=== PATIENT | female | born 1950 | race Caucasian/White ===

== ENCOUNTER → 2018-10-16 | Outpatient (CLI) | payer MEDICARE, OTHER ==
--- NOTE | 2018-10-16 15:02 | PCVCIMAG ---
APPROVED REPORT Study performed: 10/16/2018 14:00:44 EXAM: Comprehensive 2D, Doppler, and color-flow Echocardiogram Patient Location: Echo lab Room #: 3Status: routine BSA: 1.63 HR: 64 bpmBP: 130/70 mmHg Rhythm: NSR Other Information Study Quality: Good Risk Factors: Cardiac Risk Factors: HTN, Hyperlipidemia Indications Aortic Valve Disease LVH 2D Dimensions IVSd: 12.01 (7-11mm)LVOT Diam: 21.11 (18-24mm) LVDd: 32.97 mm PWd: 14.19 (7-11mm)Ascending Ao: 32.57 (22-36mm) LVDs: 22.05 (25-40mm) Left Atrium: 33.17 (27-40mm) Aortic Root: 25.55 mm LV Single Plane 4CH: 61.84 % LV Single Plane 2CH: 64.45 % Biplane EF: 64.1 % Volumes Left Atrial Volume (Systole) Single Plane 4CH: 52.13 mLSingle Plane 2CH: 47.19 mL Biplane LA Volume: 50.00 mLLA ESV Index: 31.00 mL/m2 Aortic Valve AoV Peak Omar.: 1.61 m/s AO Peak Gr.: 10.42 mmHgLVOT Max P.90 mmHg LVOT Max V: 0.69 m/s LENY Vmax: 1.49 cm2 Mitral Valve E/A Ratio: 1.1 MV Decel. Time: 197.09 ms MV E Max Omar.: 1.02 m/s MV A Omar.: 0.96 m/s IVRT: 100.35 ms TDI E/Lateral E': 14.57E/Medial E': 20.40 Medial E' Omar.: 0.05 m/s Lateral E' Omar.: 0.07 m/s Pulmonary Valve PV Peak Omar.: 0.87 m/sPV Peak Gr.: 3.02 mmHg Pulmonary Vein P Vein S: 0.45 m/sP Vein A: 0.24 m/s P Vein D: 0.50 m/sP Vein A Dur.: 100.3 msec P Vein S/D Ratio: 0.90 Tricuspid Valve TV Vmax: 0.47 m/s Left Ventricle The left ventricle is normal size. There is normal LV segmental wall motion. Mild concentric left ventricular hypertrophy. Left ventricular systolic function is normal. The left ventricular ejection fraction is within the normal range. LVEF is 60-65%. Grade II - pseudonormal filling dynamics. Right Ventricle The right ventricle is normal size. The right ventricular systolic function is normal. Atria The left atrium size is normal. The right atrium size is normal. Aortic Valve Aortic valve is trileaflet. Moderate aortic valve sclerosis. No aortic regurgitation is present. There is no aortic valvular stenosis. Mitral Valve The mitral valve is normal in structure. There is no mitral valve regurgitation noted. No evidence of mitral valve stenosis. Tricuspid Valve The tricuspid valve is normal in structure. There is no tricuspid valve regurgitation noted. Pulmonic Valve The pulmonary valve is normal in structure. There is no pulmonic valvular regurgitation. Great Vessels The aortic root is normal in size. The ascending aorta is normal in size. Aortic arch is normal in caliber. IVC is normal in size and collapses >50% with inspiration. Pericardium There is no pericardial effusion. There is no pleural effusion. <Conclusion> The left ventricle is normal size. Mild concentric left ventricular hypertrophy. Left ventricular systolic function is normal. Grade II - pseudonormal filling dynamics. The right ventricle is normal size. The left atrium size is normal. Moderate aortic valve sclerosis. There is no mitral valve regurgitation noted. There is no tricuspid valve regurgitation noted.
== END | disposition home or self-care (01) ==
LOC: PCVCIMAG 13:39
PROVIDERS: ATTEND Internal Medicine Cardiovascular Disease
DX: I35.8 Other nonrheumatic aortic valve disorders (principal); E78.00 Pure hypercholesterolemia, unspecified; I25.10 Atherosclerotic heart disease of native coronary artery without angina pectoris; I11.9 Hypertensive heart disease without heart failure
CPT/HCPCS: 93005; 93306; G0463